=== PATIENT | female | born 1965 | race Asian ===

== ENCOUNTER 2016-11-18 14:07 | Outpatient (CLI) | payer OTHER ==
[~2016-11-18 14:07] MED LIST: APAP/OXYCOD1 TAB PO; CLARITIN10 MG PO; HEARTBURN150 MG PO; TRIA37.541 PO
== END 2016-11-18 15:10 | disposition home or self-care (01) ==
LOC: RAD 14:07
DX: M25.531 Pain in right wrist (principal); M25.511 Pain in right shoulder

== ENCOUNTER 2016-11-21 20:35 | Emergency (ER) | payer OTHER ==
[~2016-11-21] VITALS: Ht 154.9 cm; Wt 95.7 kg
[2016-11-21 21:53] VITALS: BP 134/78; TEMP 98.5
== END 2016-11-21 21:55 | disposition home or self-care (01) ==
LOC: ED 20:35
DX: M25.511 Pain in right shoulder (principal); M75.101 Unspecified rotator cuff tear or rupture of right shoulder, not specified as traumatic
CPT/HCPCS: 96372; 99283; J2175

== ENCOUNTER 2017-06-09 14:30 | Outpatient (CLI) | payer OTHER | END 2017-06-09 22:03 | disposition home or self-care (01) | LOC: RAD 14:30 | DX: M50.122 Cervical disc disorder at C5-C6 level with radiculopathy (principal) ==

== ENCOUNTER 2018-09-08 07:55 | Day surgery (SDC) | payer OTHER ==
[2018-09-08 08:25] LABS: PLATELET COUNT 319 K/uL (152-353)
[2018-09-08 08:39] LABS: POTASSIUM 3.5 mmol/L (3.6-5.2)
== END 2018-09-08 10:26 | disposition home or self-care (01) ==
LOC: OR 07:55
PROVIDERS: Student in an Organized Health Care Education/Training Program
PROC: 0DBK8ZZ Excision of Ascending Colon, Via Natural or Artificial Opening Endoscopic (ICD-10-PCS; principal; 2018-09-08)
PROC: 0DBN8ZZ Excision of Sigmoid Colon, Via Natural or Artificial Opening Endoscopic (ICD-10-PCS; 2018-09-08)
PROC: 0DBM8ZZ Excision of Descending Colon, Via Natural or Artificial Opening Endoscopic (ICD-10-PCS; 2018-09-08)
DX: K63.5 Polyp of colon (principal); D12.2 Benign neoplasm of ascending colon; Z12.11 Encounter for screening for malignant neoplasm of colon; Z86.010 Personal history of colon polyps
CPT/HCPCS: 80053; 85027; J2001; J2250; J2405; J2704

== ENCOUNTER 2018-11-11 09:17 | Outpatient (CLI) | payer OTHER | END 2018-11-11 23:34 | disposition home or self-care (01) | LOC: MRI 09:17 | DX: M25.571 Pain in right ankle and joints of right foot (principal) ==

== ENCOUNTER 2019-06-08 10:48 | Outpatient (CLI) | payer OTHER | END 2019-06-08 19:37 | disposition home or self-care (01) | LOC: RAD 10:48 | DX: M25.521 Pain in right elbow (principal); M25.511 Pain in right shoulder; M25.531 Pain in right wrist ==

== ENCOUNTER 2019-06-29 10:16 | Outpatient (CLI) | payer OTHER | END 2019-06-29 22:20 | disposition home or self-care (01) | LOC: RAD 10:16 | DX: R60.0 Localized edema (principal); M54.17 Radiculopathy, lumbosacral region ==

== ENCOUNTER 2019-07-23 10:15 | Outpatient (CLI) | payer OTHER | END 2019-07-23 19:10 | disposition home or self-care (01) | LOC: MRI 10:15 | DX: M47.896 Other spondylosis, lumbar region (principal); M54.5 Low back pain ==

== ENCOUNTER 2019-07-27 10:17 | Day surgery (SDC) | payer OTHER ==
[2019-07-27 10:57] LABS: PLATELET COUNT 291 K/uL (152-353)
[2019-07-27 11:02] LABS: POTASSIUM 3.7 mmol/L (3.6-5.2)
[2019-07-27 11:14] LABS: PARTIAL THROMBOPLASTIN TIME 23.9 SECONDS (24.5-33.6)
== END 2019-07-27 18:50 | disposition home or self-care (01) ==
LOC: OR 10:17
PROVIDERS: Orthopaedic Surgery
PROC: 01N50ZZ Release Median Nerve, Open Approach (ICD-10-PCS; principal; 2019-07-27)
DX: G56.01 Carpal tunnel syndrome, right upper limb (principal); Z79.899 Other long term (current) drug therapy; Z51.81 Encounter for therapeutic drug level monitoring
CPT/HCPCS: 80048; 85027; 85610; 85730; 87070; J0132; J0690; J1100; J2001; J2250; J2405; J2704; J2765; J3010; J3490

== ENCOUNTER 2020-10-25 01:00 | Emergency (ER) | payer OTHER ==
[~2020-10-25] VITALS: Ht 157.5 cm; Wt 111.1 kg
[2020-10-25 01:05] VITALS: TEMP 98.7
[2020-10-25 02:00] VITALS: BP 169/85
== END 2020-10-25 02:00 | disposition home or self-care (01) ==
LOC: ED 01:00
DX: J32.8 Other chronic sinusitis (principal); R51.9 Headache, unspecified
CPT/HCPCS: 96372; 99283; J2930

== ENCOUNTER 2021-10-23 10:33 | Outpatient (CLI) | payer OTHER | END 2021-10-23 19:29 | disposition home or self-care (01) | LOC: RAD 10:33 | PROVIDERS: ATTEND Physician Assistant | DX: M25.511 Pain in right shoulder (principal); M25.561 Pain in right knee; M25.562 Pain in left knee ==

== ENCOUNTER 2022-10-25 09:45 | Outpatient (CLI) | payer OTHER | END 2022-10-25 18:58 | disposition home or self-care (01) | LOC: MAMMO 09:45 | PROVIDERS: ATTEND Nurse Practitioner Primary Care | DX: Z12.31 Encounter for screening mammogram for malignant neoplasm of breast (principal) ==

== ENCOUNTER 2022-10-29 13:50 | Outpatient (CLI) | payer OTHER | END 2022-10-29 18:59 | disposition home or self-care (01) | LOC: RAD 13:50 | PROVIDERS: ATTEND Orthopaedic Surgery | DX: M25.511 Pain in right shoulder (principal); M79.644 Pain in right finger(s) ==

== ENCOUNTER 2022-11-12 09:43 | Outpatient (CLI) | payer OTHER | END 2022-11-12 19:08 | disposition home or self-care (01) | LOC: MRI 09:43 | PROVIDERS: ATTEND Orthopaedic Surgery | DX: M75.41 Impingement syndrome of right shoulder (principal) ==